=== PATIENT | female | born 1965 | race Caucasian/White ===

== ENCOUNTER 2019-04-18 10:05 | Outpatient (CLI) | payer BC, SELFPAY ==
--- NOTE | 2019-04-18 10:13 | MM_ITS ---
WS: [id number] BILATERAL SCREENING DIGITAL MAMMOGRAM WITH CAD HISTORY: SCREENING COMPARISON: 02/21/2018, 12/18/2017 and 06/20/2013 Bilateral CC and MLO views submitted. Computer aided detection analyzed. Breast composition: The breasts are heterogeneously dense, which may obscure small masses. No suspici ous masses, microcalcifications or architectural distortion. Numerous scattered calcifications throug hout the LEFT breast are stable. No suspicious cluster. Benign appearing lymph nodes. MM/[id number] IMPRESSION: BI-RADS: 2-Benign FOLLOW UP: 1 Year Follow-up
== END 2019-04-18 10:06 | disposition home or self-care (01) ==
LOC: RADSHAW 10:09
PROVIDERS: Family Provider Family Medicine; PCP Family Medicine; Visit Provider Family Medicine
DX: Z12.31 Encounter for screening mammogram for malignant neoplasm of breast (principal)
CPT/HCPCS: 77067

== ENCOUNTER 2019-04-26 14:22 | Emergency (ER) | payer BC, SELFPAY ==
--- NOTE | 2019-04-26 14:25 | XRR_ITS ---
PROCEDURE INFORMATION: Exam: XR Right Hand Exam date and time: 04/26/2019 2:42 PM Age: 53 years old Clinical indication: Injury or trauma; Initial encounter; Hand; Right; Injury date: 3 wks ago; Injury details: Dog bite x 3 weeks, RT thumb oozing, pus, blood, pain TECHNIQUE: Imaging protocol: XR Right hand. Views: 3 or more views. COMPARISON: CR Hand 3 views, RIGHT* [id number] 09/09/2015 2:55 PM FINDINGS: Bones/joints: No fracture or dislocation evident. No bony destruction to indicate obvious osteomyelitis. Thumb interphalangeal joint space narrowing with mild reactive sclerosis suggesting chronic osteoarthritis. Soft tissues: Mild right thumb soft tissue swelling. XR/XR hand RT min 3V* [id number] IMPRESSION: Right thumb soft tissue swelling.
[2019-04-26 14:58] VITALS: BP 160/83; PULSE 82; RESP 18; TEMP 36.8; O2SAT 100; BMI 22.8
--- NOTE | 2019-04-26 15:10 | W.ED.SKABFB ---
HPI - Skin/Abscess/Foreign Bdy General: Chief complaint: Skin/Abscess/Foreign Body Stated complaint: RIGHT THUMB INJURY Time Seen by Provider: 04/26/19 15:11 Source: patient Mode of arrival: ambulatory Limitations: no limitations History of Present Illness: HPI narrative: Patient has had a dog bite to her right thumb approximately 2 weeks ago. Patient was on 7 days of Bactrim with some improvement in the wound and then another 7 days of clindamycin which not much improvement. Patient reports that she has had continued drainage from 1 of the puncture wounds but continues to have some swelling to it. Patient appears well. Patient appears in no acute distress Review of Systems General: Reports: 10 or more systems reviewed and unremarkable except in HPI and below Skin/Breast: Reports: redness and skin swelling PFSH ED PFSH: Social History Smoking and tobacco status: never smoked Physical Exam Const: COMMON NORMALS: no apparent distress and oriented x3 GENERAL APPEARANCE: cooperative HENMT: COMMON NORMALS: normocephalic, external ears normal, EAC's normal, TM's normal bilaterally and external nose normal HEAD & SCALP: normal to inspection and normocephalic FACE & SINUS: normal facial exam NOSE: external nose normal GENERAL EAR: hearing not grossly impaired EXTERNAL EAR: Yes external ears normal EXTERNAL AUDITORY CANAL: EAC's normal TYMPANIC MEMBRANE: TM's normal bilaterally MOUTH: oral and palatal mucosa normal THROAT: posterior oropharynx normal Eye: COMMON NORMALS: PERRL and EOMs intact bilaterally PUPIL: Yes PERRL Neck/C-Spine: COMMON NORMALS: full ROM and no lymphadenopathy Lymph: LYMPHATIC: no lymphedema noted Chest: COMMONS NORMALS: inspection of chest normal and palpation of chest normal Resp: COMMON NORMALS: normal respiratory effort and clear to auscultation bilaterally AUSCULTATION: clear to auscultation bilaterally Cardio: COMMON NORMALS: regular rate and regular rhythm RATE: regular rate RHYTHM: regular rhythm GI: COMMON NORMALS: normal to inspection, nondistended, normoactive bowel sounds and non-tender : COMMON NORMALS: Yes no CVA tenderness BLADDER/KIDNEY EXAM: Yes no CVA tenderness Back/Pelvis: COMMON NORMALS: no CVA tenderness and thoracic and lumbar spine normal to inspection Extremity: NARRATIVE EXTREMITY EXAM: swelling to distal right thumb, draining puncture wound GENERAL: Yes edema Neuro: COMMON NORMALS: oriented x3, moves all extremities and no focal motor deficits Psych: COMMON NORMALS: mental status grossly normal and cooperative Skin: COMMON NORMALS: no rashes or lesions noted GENERAL SKIN EXAM: no rashes or lesions noted Procedures Abscess I/D Site: hand Side (if applicable): right (thumb) Local Anesthetic: lidocaine 1% Amount of anesthesia used (mL): 5 Amount of fluid expressed (mL): 1 Irrigation: No Complications: bleeding Course Vital Signs: Vital signs: Vital Signs Temperature 98.2 F 04/26/19 14:58 Pulse Rate 75 04/26/19 16:21 Respiratory Rate 16 04/26/19 16:21 Blood Pressure 160/83 04/26/19 14:58 Pulse Oximetry 98 04/26/19 16:21 MDM - Skin/Abscess/Foreign Bdy MDM Narrative: Medical decision making narrative: Patient comes in today with injury to the right thumb. Patient reports 2-week history of poor healing and redness to the thumb. Exam notes prompt capillary refill. Normal range of motion of the thumb. Redness to the distal part of the thumb with swelling. Puncture wound is noted to the area with purulent drainage. Differential diagnosis includes abscess, cellulitis, pyogenic granuloma, furuncle, felon. X-ray noted some soft tissue swelling. Opened up wound with a 2 cm incision. Some moderate bleeding occurred post procedure. Wound was covered with dressing and a slight pressure was applied to the wound. Patient was started on Augmentin for better coverage due to the bite coming from a dog. Patient had had previous treatment with 1 week of Bactrim and 1 week of clindamycin. Patient was started on Augmentin recommended to her change of dressing in the emergency room tomorrow. Recommend follow-up with wound care. Case management referral placed. Patient reports understanding of care plan and need for follow-up. Discharge Plan Discharge Patient Disposition: Home, Self-Care Clinical Impression: Cellulitis Qualifiers: Site of cellulitis: extremity Site of cellulitis of extremity: finger Laterality: right Qualified Code(s): L03.011 - Cellulitis of right finger Abscess of skin or subcutaneous tissue Qualifiers: Site of cutaneous abscess: extremity Site of cutaneous abscess of extremity: hand Laterality: right Qualified Code(s): L02.511 - Cutaneous abscess of right hand Condition: Stable Prescriptions: New Augmentin 875-125 mg tablet 1 tab PO BID Qty: 20 RF: 0 hydrocodone-acetaminophen 5-325 mg tablet 1 tab PO Q6H PRN (Reason: pain (scale score 7-10)) Qty: 7 RF: 0 No Action hydroxychloroquine 200 mg tablet 200 mg PO BID Qty: 60 RF: 2 ergocalciferol (vitamin D2) 1,250 mcg (50,000 unit) capsule 50,000 unit PO .COMPLEX Qty: 4 RF: 5 ibuprofen 200 mg Tablet 400 mg PO BID RF: 0 vitamin B complex Tablet 1 tab PO DAILY RF: 0 Fish Oil 1 cap PO DAILY RF: 0 gabapentin 300 mg capsule 300 mg PO BEDTIME RF: 0 Discharge Orders: Discharge Order (Routine); Ordered 04/26/19 Ordered By: Evaristo Levy Referrals: Edvin Tinsley, [Primary Care Provider] - Discharge Diet: Usual diet Discharge Activity: Increase activity as tolerated Patient Instructions: Animal Bite (ED) Activity Restrictions/Additional Instructions: Encourage fluids and rest Activity as tolerate Keep dressing clean and dry Follow-up with primary care in three days Return to ER for dressing change tomorrow Discharge Date/Time: 04/26/19 16:22 Coding Level of Care Code ED Oral And Maxillofacial Pathologist for Chg Fwd Exam Comprehensive
[2019-04-26 15:12] VITALS: RESP 16
[2019-04-26 15:15] VITALS: RESP 16
[2019-04-26] MEDS: lidocaine 1% INJ 20 mL 10 ML SUBCUT (15:40)
[2019-04-26] MEDS: amoxicillin-clav 875-125 mg Tablet 1 TAB PO (15:40)
[2019-04-26 16:21] VITALS: PULSE 75; RESP 16; O2SAT 98
--- NOTE | 2019-04-29 11:52 | DCPLANNER ---
account manager had order to schedule a follow up appointment for patient with Wound Care. account manager called patient to speak with patient, to confirm that she would like for me to schedule a follow up appointment for patient with Wound Care. Patient stated not at this time.
== END 2019-04-26 16:22 | disposition home or self-care (01) ==
PROVIDERS: Emergency Provider Nurse Practitioner Family; Family Provider Family Medicine; PCP Family Medicine
DX: L02.511 Cutaneous abscess of right hand (principal); L03.011 Cellulitis of right finger
CPT/HCPCS: 26010; 73130; 99281; 99283; J2001

== ENCOUNTER 2019-04-27 13:01 | Emergency (ER) | payer BC, SELFPAY ==
[2019-04-27 13:16] VITALS: BP 180/92; PULSE 60; RESP 16; TEMP 36.8; O2SAT 99; BMI 23.6
--- NOTE | 2019-04-27 13:31 | W.ED.EXTPRO ---
HPI - Extremity Problem General: Chief complaint: Extremity Injury, Upper Stated complaint: pain right thumb Time Seen by Provider: 04/27/19 13:30 History of Present Illness: HPI Narrative: 53-year-old female right thumb pain and swelling. She was previously bitten by a dog yesterday return had incision and drainage of a developing abscess in the lateral aspect of the right thumb today is quite swollen tender she comes in for reevaluation.53-year-old female returns the emergency room with complaint of MD Complaint: extremity pain and extremity swelling Onset (ago): day(s) Pain Consistency: constant Location: right Quality: aching Radiation: none Relieving factors: nothing Exacerbating factors: nothing Associated symptoms: Reports no associated symptoms; Deny chest pain, fever(s) or rash Context: other (Recent dog bite) Review of Systems Const: Denies: fever, chills, body aches, change in appetite, fatigue or malaise ENMT: Denies: throat pain, ear pain, nasal discharge or nasal congestion Card: Denies: chest pain, edema, shortness of breath on exertion or shortness of breath when lying down Resp: Denies: shortness of breath, productive cough or non-productive cough GI: Denies: abdominal pain, nausea, vomiting, vomiting blood, coffee grounds in vomit, diarrhea, constipation, bloating, blood in stool or black tarry stool : Denies: flank pain, difficulty urinating, painful urination, urinary frequency or urinary urgency Skin/Breast: Denies: rash or itching PFSH ED PFSH: Social History Smoking and tobacco status: never smoked Physical Exam Const: COMMON NORMALS: no apparent distress GENERAL APPEARANCE: cooperative and comfortable ORIENTATION/CONSCIOUSNESS: Yes awake, Yes oriented to person, Yes oriented to place and Yes oriented to time Neck/C-Spine: COMMON NORMALS: no JVD Lymph: LYMPHATIC: no lymphadenopathy noted and no lymphedema noted Resp: COMMON NORMALS: normal respiratory effort, no retractions, no use of accessory muscles and clear to auscultation bilaterally AUSCULTATION: clear to auscultation bilaterally Cardio: COMMON NORMALS: no JVD, regular rate, regular rhythm and no murmurs RATE: regular rate RHYTHM: regular rhythm GI: COMMON NORMALS: soft to palpation and no hepatosplenomegaly AUSCULTATION: Yes normoactive bowel sounds PALPATION: Yes soft, No tender, No guarding and Yes no hepatosplenomegaly Extremity: OTHER: Examination of the left there is some maceration along the edge of the incision for patient. With palpation along the swollen areas there is no extruding of any purulent material it is not fluctuant and is just firm mildly indurated lateral collateral ligament of the MP joint of the right thumb appears to be severed there is a significant click and deviation with varus stressing. Minimal discomfort. Neuro: SENSORIUM/ORIENTATION: Yes oriented to person, Yes oriented to place and Yes oriented to time Skin: COMMON NORMALS: no rashes or lesions noted GENERAL SKIN EXAM: no rashes or lesions noted Course ED course: Continue Augmentin previously prescribed. Will place her in a thumb splint and have her follow-up with orthopedics for further evaluation she will need close monitoring of this. Return to ER if runs a fever or has worsening swelling. Vital Signs: Vital signs: Vital Signs Temperature 98.3 F 04/27/19 13:16 Pulse Rate 75 04/27/19 15:10 Respiratory Rate 18 04/27/19 15:10 Blood Pressure 175/96 04/27/19 15:10 Pulse Oximetry 100 04/27/19 15:10 MDM - Extremity (Nontraumatic) Lab Data: Labs: Lab Results 04/27/19 04/27/19 Range/Units 13:54 13:54 WBC 5.6 (4.0-10.0) 10^3/ uL RBC 4.20 (4.1-5.3) 10^6/u L Hgb 11.5 (11.5-15.3) g/dL Hct 36.8 L (37.0-47.0) % MCV 87.6 (81-99) fL MCH 27.4 L (28.0-34.0) pg MCHC 31.3 (30.0-36.0) g/dL RDW 14.6 (12.1-15.1) % Plt Count 434 H (130-400) 10^3/c mm MPV 11.2 H (7.4-10.4) fL Neut % (Auto) 65.1 % Lymph % (Auto) 23.5 % [place] % (Auto) 8.7 % Eos % (Auto) 1.4 % Baso % (Auto) 0.9 % Neut # (Auto) 3.7 (1.8-7.7) 10^3/u L Lymph # (Auto) 1.3 (0.8-4.8) 10^3/u L [place] # (Auto) 0.5 (0.2-0.9) 10^3/u L Eos # (Auto) 0.1 (0.0-0.8) 10^3/u L Baso # (Auto) 0.1 (0.0-0.1) 10^3/u L Nucleated RBC % (a uto) 0 % Nucleated RBCs # 0.0 /100WBC Sodium 137 (136-145) mmol/L Potassium 3.5 (3.5-5.1) mmol/L Chloride 99 (98-107) mmol/L Carbon Dioxide 24 (22-29) mmol/L Anion Gap 17.5 (5-19) BUN 11 (6-20) mg/dL Creatinine 0.7 (0.5-0.9) mg/dL GFR Calculation 87.5 L (90-130) mL/min Glucose 88 (65-115) mg/dL Calcium 9.7 (8.5-10.5) mg/dL Total Bilirubin 0.4 (0.15-1.2) mg/dL AST 22 (0-32) U/L ALT 11 (0-33) U/L Alkaline Phosphata se 89 (35-105) IU/L Total Protein 8.4 (6.6-8.7) g/dL Albumin 4.9 (3.5-5.2) g/dL Globulin 3.5 (1.3-4.6) g/dL Discharge Plan Discharge Patient Disposition: Home, Self-Care Clinical Impression: Cellulitis, Fracture of thumb Condition: Stable Prescriptions: No Action hydroxychloroquine 200 mg tablet 200 mg PO BID Qty: 60 RF: 2 ergocalciferol (vitamin D2) 1,250 mcg (50,000 unit) capsule 50,000 unit PO .COMPLEX Qty: 4 RF: 5 ibuprofen 200 mg Tablet 400 mg PO BID RF: 0 vitamin B complex Tablet 1 tab PO DAILY RF: 0 Fish Oil 1 cap PO DAILY RF: 0 gabapentin 300 mg capsule 300 mg PO BEDTIME RF: 0 amoxicillin-pot clavulanate [Augmentin] 875-125 mg tablet 1 tab PO BID Qty: 20 RF: 0 hydrocodone-acetaminophen 5-325 mg tablet 1 tab PO Q6H PRN (Reason: pain (scale score 7-10)) Qty: 7 RF: 0 NAC 600 mg Capsule 600 mg PO DAILY RF: 0 Referrals: So Wise MD [Physician] - (Fracture R thumb, recent dog bite) Discharge Diet: Usual diet Discharge Activity: Resume usual activity Activity Restrictions/Additional Instructions: Continue antibiotics use thumb splint continuously. Case management will call for referral to Ortho. Discharge Date/Time: 04/27/19 16:44 Coding Level of Care Code ED Food Sanitarian for [place] Fwd Exam Detailed
--- NOTE | 2019-04-27 13:37 | CTR_ITS ---
PROCEDURE INFORMATION: Exam: CT Right Upper Extremity With Contrast, Hand Exam date and time: 04/27/2019 2:50 PM Age: 53 years old Clinical indication: Injury or trauma; Initial encounter; Puncture; Hand and finger; Right; Patient HX: R thumb infection 3 weeks S/P dog bite; Additional info: Infection thumb TECHNIQUE: Imaging protocol: CT of the Right upper extremity with intravenous contrast was performed. Exam focused on the hand. Total DLP: 263.5 mGy-cm Radiation optimization: All CT scans at this facility use at least one of these dose optimization techniques: automated exposure control; mA and/or kV adjustment per patient size (includes targeted exams where dose is matched to clinical indication); or iterative reconstruction. Contrast material: OMNI 300; Contrast volume: 95 ml; Contrast route: 18G; COMPARISON: CR XR hand RT min 3V* [id number] 04/26/2019 2:33 PM FINDINGS: Bones/joints: Comminuted displaced intra-articular fracture involving the anterior base of the thumb distal phalanx with the largest fracture fragment measuring 3 mm in maximum diameter. Probable nondisplaced fracture or cortical defect in the distal portion of the thumb proximal phalanx. The patient may be at risk for osteomyelitis because of multiple bony injuries with possible penetrating trauma. Soft tissues: Soft tissue swelling surrounding the thumb consistent with cellulitis. CT/CT hand RT w con [id number] IMPRESSION: 1. Comminuted displaced intra-articular fracture involving the anterior base of the thumb distal phalanx with the largest fracture fragment measuring 3 mm in maximum diameter. 2. Soft tissue swelling surrounding the thumb consistent with cellulitis. 3. The patient may be at risk for osteomyelitis and septic arthritis because of multiple bony injuries with possible penetrating trauma. Radiation Dose CTDIVOL = (mGy): DLP = 263.5 (mGy-cm)
[2019-04-27] MEDS: vancomycin 1,000 MG in sodium chloride 0.9% 250 ML 250 MG IV (13:49)
[2019-04-27 13:52] VITALS: BP 179/105; PULSE 61; RESP 18; O2SAT 99
[2019-04-27 14:16] LABS: Basophils # 0.1 10^3/uL (0.0-0.1); Basophils % 0.9 %; Eosinophils # 0.1 10^3/uL (0.0-0.8); Eosinophils % 1.4 %; Hematocrit 36.8 % (37.0-47.0); Hemoglobin 11.5 g/dL (11.5-15.3); Lymphocytes # 1.3 10^3/uL (0.8-4.8); Lymphocytes % 23.5 %; Mean Corpuscular HGB Conc 31.3 g/dL (30.0-36.0); Mean Corpuscular Hemoglobin 27.4 pg (28.0-34.0); Mean Corpuscular Volume 87.6 fL (81-99); Mean Platelet Volume 11.2 fL (7.4-10.4); Monocytes # 0.5 10^3/uL (0.2-0.9); Monocytes % 8.7 %; Neutrophils # 3.7 10^3/uL (1.8-7.7); Neutrophils % 65.1 %; Nucleated Red Blood Cells % 0 %; Platelet Count 434 10^3/cmm (130-400); Red Cell Distribution Width 14.6 % (12.1-15.1); White Blood Count 5.6 10^3/uL (4.0-10.0)
[2019-04-27 14:22] VITALS: BP 162/81; PULSE 68; RESP 18; O2SAT 100
[2019-04-27 14:53] LABS: Alanine Aminotransferase 11 U/L (0-33); Albumin Level 4.9 g/dL (3.5-5.2); Alkaline Phosphatase 89 IU/L (35-105); Aspartate Amino Transferase 22 U/L (0-32); Blood Urea Nitrogen 11 mg/dL (6-20); Calcium 9.7 mg/dL (8.5-10.5); Carbon Dioxide 24 mmol/L (22-29); Globulin 3.5 g/dL (1.3-4.6); Glomerular Filtration Rate 87.5 mL/min (90-130); Glucose 88 mg/dL (65-115); Total Bilirubin 0.4 mg/dL (0.15-1.2); Total Protein 8.4 g/dL (6.6-8.7)
--- NOTE | 2019-04-27 14:56 | PC.NURSE ---
Pt to CT
[2019-04-27] MEDS: iohexol 300 mg/mL 100 mL Btl IV (15:05)
[2019-04-27 15:07] VITALS: BP 182/110; PULSE 81; RESP 18; O2SAT 100
[2019-04-27 15:10] VITALS: BP 175/96; PULSE 75; RESP 18; O2SAT 100
[2019-04-27 15:26] LABS: Anion Gap 17.5 (5-19); Chloride 99 mmol/L (98-107); Potassium 3.5 mmol/L (3.5-5.1); Sodium 137 mmol/L (136-145)
--- NOTE | 2019-04-29 13:06 | DCPLANNER ---
education and training manager had message to schedule a follow up appointment for patient with ortho. education and training manager called ortho, spoke with Christy, gave clinic patients appointment information. education and training manager was told that patients appointment information would be printed and reviewed. Clinic will kerry upper caser and patient with appointment information.
--- NOTE | 2019-04-30 13:16 | DCPLANNER ---
Patient has a follow up appointment scheduled for Wednesday, May 01, 2019 at 9:[address] Limon. Clinic will call case preparer and liner with appointment information.
--- NOTE | 2019-05-09 10:01 | DCPLANNER ---
Patient did attend appointment scheduled for 05.01.19 with ortho.
== END 2019-04-27 16:44 | disposition home or self-care (01) ==
PROVIDERS: Emergency Provider Family Medicine; Family Provider Family Medicine; PCP Family Medicine
DX: S62.521A Displaced fracture of distal phalanx of right thumb, initial encounter for closed fracture (principal); L03.011 Cellulitis of right finger; W54.0XXA Bitten by dog, initial encounter
CPT/HCPCS: 36415; 73201; 80053; 85025; 87040; 96365; 99283; J3370; J7050; Q9967

== ENCOUNTER → 2019-05-01 08:45 | Outpatient (BNVA) | payer BC, SELFPAY | PROVIDERS: Family Provider Family Medicine; PCP Family Medicine; Referring Provider Emergency Medicine; Visit Provider Orthopaedic Surgery | DX: S62.511A Displaced fracture of proximal phalanx of right thumb, initial encounter for closed fracture (principal); X58.XXXA Exposure to other specified factors, initial encounter | CPT/HCPCS: 73140 ==

== ENCOUNTER 2019-05-03 11:12 | Outpatient (CLI) | payer BC, SELFPAY ==
[2019-05-03 11:36] LABS: Basophils % 1.2 %; Eosinophils # 0.1 10^3/uL (0.0-0.8); Eosinophils % 2.9 %; Hematocrit 36.5 % (37.0-47.0); Hemoglobin 11.3 g/dL (11.5-15.3); Lymphocytes # 1.1 10^3/uL (0.8-4.8); Lymphocytes % 31.1 %; Mean Corpuscular Hemoglobin 27.3 pg (28.0-34.0); Mean Corpuscular Volume 88.2 fL (81-99); Mean Platelet Volume 10.9 fL (7.4-10.4); Monocytes # 0.5 10^3/uL (0.2-0.9); Monocytes % 13.8 %; Neutrophils # 1.7 10^3/uL (1.8-7.7); Neutrophils % 50.7 %; Nucleated Red Blood Cells % 0 %; Platelet Count 368 10^3/cmm (130-400); Red Blood Count 4.14 10^6/uL (4.1-5.3); Red Cell Distribution Width 14.6 % (12.1-15.1); White Blood Count 3.4 10^3/uL (4.0-10.0)
[2019-05-03 11:59] LABS: C Reactive Protein 0.5 mg/L (0.0-4.9)
[2019-05-03 12:42] LABS: Erythrocyte Sedimentation Rate 15 mm/hr (0-15)
== END 2019-05-03 11:13 | disposition home or self-care (01) ==
LOC: LAB 11:19
PROVIDERS: Family Provider Family Medicine; PCP Family Medicine; Visit Provider Orthopaedic Surgery
DX: S62.509A Fracture of unspecified phalanx of unspecified thumb, initial encounter for closed fracture (principal); X58.XXXA Exposure to other specified factors, initial encounter
CPT/HCPCS: 85025; 85651; 86140

== ENCOUNTER → 2019-05-31 10:01 | Outpatient (BNVA) | payer BC, SELFPAY | PROVIDERS: Family Provider Family Medicine; PCP Family Medicine; Visit Provider Orthopaedic Surgery | DX: M79.641 Pain in right hand (principal); S62.521A Displaced fracture of distal phalanx of right thumb, initial encounter for closed fracture; S62.511A Displaced fracture of proximal phalanx of right thumb, initial encounter for closed fracture; X58.XXXA Exposure to other specified factors, initial encounter | CPT/HCPCS: 73140 ==

== ENCOUNTER 2019-06-28 09:31 | Outpatient (CLI) | payer BC, SELFPAY ==
--- NOTE | 2019-06-28 | USCV_ITS ---
Una Lyon Age: 53 Gender: F : 1965 Exam Date: 06/28/2019 10:26 Ordering Phys: Mary Jane Sierra MD ([email or web address]) Technologist: Exam Location: [facility] – [place], [place] Indication: PULMONARY HYPERTENSION BP: 150 / 80 HR: 57 Rhythm: Sinus Technical Quality: Good MEASUREMENTS (Male / Female) Normal Values 2D ECHO LV Diastolic Diameter PLAX 4.4 cm 4.2 - 5.9 / 3.9 - 5.3 cm LV Systolic Diameter PLAX 2.1 cm IVS Diastolic Thickness 0.9 cm 0.6 - 1.0 / 0.6 - 0.9 cm IVS Systolic Thickness 1.5 cm LVPW Diastolic Thickness 1.1 cm 0.6 - 1.0 / 0.6 - 0.9 cm LVPW Systolic Thickness 1.2 cm LVOT Diameter 2.1 cm LV Ejection Fraction 2D Teich 83.7 % LV Ejection Fraction MOD 2C 64.2 % LV Ejection Fraction 2C AL 64.2 % LA Diameter 3.4 cm LA Width 3.2 cm LA Height 3.8 cm RA Width 3.4 cm RA Height 3.7 cm M-MODE LV Diastolic Diameter MM 5.3 cm 4.2 - 5.9 / 3.9 - 5.3 cm LV Systolic Diameter MM 3.5 cm LV Ejection Fraction MM Teich 62.6 % IVS Diastolic Thickness MM 1.1 cm 0.6 - 1.0 / 0.6 - 0.9 cm IVS Systolic Thickness MM 1.5 cm LVPW Diastolic Thickness MM 1.1 cm 0.6 - 1.0 / 0.6 - 0.9 cm LVPW Systolic Thickness MM 1.6 cm RV Diastolic Diameter MM 1.6 cm Aortic Annulus Diameter 3.4 cm LA Ao Ratio MM 1.0 MV E Point Septal Separation 1.0 cm DOPPLER AV Peak Velocity 124.0 cm/s LVOT Peak Velocity 103.0 cm/s AV Area Cont Eq vti 2.6 cm squared AV Area Cont Eq pk 2.8 cm squared MV Area PHT 4.0 cm squared Mitral E to A Ratio 0.9 MV E' Velocity 15.0 cm/s Mitral E to MV E' Ratio 5.7 Mitral E to LV E' Lateral Ratio 5.5 Mitral E to LV E' Septal Ratio 6.0 TR Peak Velocity 256.0 cm/s TR Peak Gradient 26.3 mmHg TV Peak E Velocity 77.0 cm/s Right Atrial Pressure 3.0 mmHg Pulmonary Artery Systolic Pressu 29.2 mmHg FINDINGS Left Ventricle Normal left ventricular size, systolic function and wall thickness, with no regional wall motion abnormalities. Left ventricular ejection fraction is estimated at 67 %. Normal diastolic function. Right Ventricle Normal right ventricular size and systolic function, RVSP 29.2 mmHg. Right Atrium Normal right atrial size. Left Atrium Normal left atrial size. Mitral Valve Mildly thickened mitral valve. No mitral valve stenosis. Trace to mild mitral valve regurgitation. Aortic Valve Aortic valve not well visualized. No aortic valve stenosis. No aortic valve regurgitation. Tricuspid Valve Structurally normal tricuspid valve. Trace-mild tricuspid valve regurgitation. Pulmonic Valve Structurally normal pulmonic valve. No pulmonary valve stenosis. No significant pulmonary valve regurgitation. Pericardium No pericardial effusion. Aorta Normal-sized aortic root. CONCLUSIONS 1. Normal left ventricular size, systolic function and wall thickness, with no regional wall motion abnormalities. Left ventricular ejection fraction is estimated at 67 %. Normal diastolic function. 2. Normal right ventricular size and systolic function, RVSP 29.2 mmHg. 3. Trace to mild mitral and tricuspid valve regurgitation. 4. Pulmonary artery pressure estimated at 29 mmHg. 5. When compared to previous echocardiogram dated 04/24/2017, there may not have been any significant change. Mary Jane Sierra MD (Electronically Signed) Final Date: 01 Jul 2019 12:00 S
[2019-06-28 10:46] LABS: Basophils % 0.6 %; Eosinophils # 0.1 10^3/uL (0.0-0.8); Eosinophils % 1.9 %; Hematocrit 38.6 % (37.0-47.0); Hemoglobin 12.2 g/dL (11.5-15.3); Lymphocytes # 0.9 10^3/uL (0.8-4.8); Lymphocytes % 19.2 %; Mean Corpuscular HGB Conc 31.6 g/dL (30.0-36.0); Mean Corpuscular Hemoglobin 27.2 pg (28.0-34.0); Mean Corpuscular Volume 86.2 fL (81-99); Mean Platelet Volume 11.2 fL (7.4-10.4); Monocytes # 0.6 10^3/uL (0.2-0.9); Monocytes % 11.9 %; Neutrophils # 3.2 10^3/uL (1.8-7.7); Neutrophils % 66.2 %; Nucleated Red Blood Cells % 0 %; Platelet Count 432 10^3/cmm (130-400); Red Blood Count 4.48 10^6/uL (4.1-5.3); Red Cell Distribution Width 15.4 % (12.1-15.1); White Blood Count 4.8 10^3/uL (4.0-10.0)
[2019-06-28 11:04] LABS: Alanine Aminotransferase 17 U/L (0-33); Albumin Level 4.9 g/dL (3.5-5.2); Alkaline Phosphatase 73 IU/L (35-105); Aspartate Amino Transferase 25 U/L (0-32); Globulin 3.4 g/dL (1.3-4.6); Glomerular Filtration Rate 104.6 mL/min (90-130); Total Bilirubin 0.4 mg/dL (0.15-1.2); Total Protein 8.3 g/dL (6.6-8.7)
[2019-06-28 12:04] LABS: Erythrocyte Sedimentation Rate 14 mm/hr (0-15)
[2019-06-28 12:16] LABS: C Reactive Protein 0.5 mg/L (0.0-4.9)
[2019-06-28 13:02] LABS: 25 Hydroxy Vitamin D 45 ng/mL (30-100)
== END 2019-06-28 09:32 | disposition home or self-care (01) ==
PROVIDERS: Internal Medicine Rheumatology; Family Provider Family Medicine; PCP Family Medicine; Visit Provider Internal Medicine Cardiovascular Disease
DX: I27.20 Pulmonary hypertension, unspecified (principal); Z79.899 Other long term (current) drug therapy; I08.1 Rheumatic disorders of both mitral and tricuspid valves
CPT/HCPCS: 36415; 80076; 82306; 82565; 85025; 85651; 86140; 93306

== ENCOUNTER → 2019-09-04 08:38 | Outpatient (BNVA) | payer BC, SELFPAY | PROVIDERS: Family Provider Family Medicine; PCP Family Medicine; Visit Provider Internal Medicine Rheumatology | DX: M35.00 Sjogren syndrome, unspecified (principal); Z79.899 Other long term (current) drug therapy; M05.79 Rheumatoid arthritis with rheumatoid factor of multiple sites without organ or systems involvement; M19.042 Primary osteoarthritis, left hand | CPT/HCPCS: 99214 ==

== ENCOUNTER → 2019-10-07 09:31 | Outpatient (BNVA) | payer BC, SELFPAY | PROVIDERS: Family Provider Family Medicine; PCP Family Medicine; Visit Provider Internal Medicine Rheumatology | DX: Z79.899 Other long term (current) drug therapy (principal) | CPT/HCPCS: 36415; 80076; 82565; 85025; 85651; 86140 ==

== ENCOUNTER → 2019-12-09 08:42 | Outpatient (BNVA) | payer BC, SELFPAY | PROVIDERS: Family Provider Family Medicine; PCP Family Medicine; Visit Provider Internal Medicine Rheumatology | DX: Z79.899 Other long term (current) drug therapy (principal) | CPT/HCPCS: 36415; 80076; 82565; 85025; 85651; 86140 ==

== ENCOUNTER → 2020-01-07 09:29 | Outpatient (BNVA) | payer BC, SELFPAY | PROVIDERS: Family Provider Family Medicine; PCP Family Medicine; Visit Provider Internal Medicine Rheumatology | DX: M35.00 Sjogren syndrome, unspecified (principal); M05.79 Rheumatoid arthritis with rheumatoid factor of multiple sites without organ or systems involvement; R76.8 Other specified abnormal immunological findings in serum; R53.83 Other fatigue; M18.12 Unilateral primary osteoarthritis of first carpometacarpal joint, left hand; Z79.899 Other long term (current) drug therapy | CPT/HCPCS: 36415; 84439; 84443; 99214 ==

== ENCOUNTER → 2020-02-12 13:39 | Outpatient (BNVA) | payer BC, SELFPAY | PROVIDERS: Family Provider Family Medicine; PCP Family Medicine; Visit Provider Internal Medicine Rheumatology | DX: Z79.899 Other long term (current) drug therapy (principal); M35.00 Sjogren syndrome, unspecified; M05.79 Rheumatoid arthritis with rheumatoid factor of multiple sites without organ or systems involvement; M19.90 Unspecified osteoarthritis, unspecified site | CPT/HCPCS: 36415; 80076; 82565; 85025; 85651; 86140 ==

== ENCOUNTER → 2020-05-06 08:48 | Outpatient (BNVA) | payer BC, SELFPAY | PROVIDERS: Family Provider Family Medicine; PCP Family Medicine; Visit Provider Internal Medicine Rheumatology | DX: M05.79 Rheumatoid arthritis with rheumatoid factor of multiple sites without organ or systems involvement (principal); Z79.899 Other long term (current) drug therapy | CPT/HCPCS: 36415; 80076; 82565; 85025; 86140 ==

== ENCOUNTER → 2020-05-13 08:43 | Outpatient (BNVA) | payer BC, SELFPAY | PROVIDERS: Family Provider Family Medicine; PCP Family Medicine; Visit Provider Internal Medicine Rheumatology | DX: M35.00 Sjogren syndrome, unspecified (principal); R76.8 Other specified abnormal immunological findings in serum; M05.79 Rheumatoid arthritis with rheumatoid factor of multiple sites without organ or systems involvement; Z79.899 Other long term (current) drug therapy; R53.83 Other fatigue | CPT/HCPCS: 99214 ==

== ENCOUNTER 2020-07-10 10:07 | Outpatient (CLI) | payer BC, SELFPAY ==
--- NOTE | 2020-07-10 10:11 | MM_ITS ---
WS: [id number] BILATERAL SCREENING DIGITAL MAMMOGRAM WITH CAD HISTORY: SCREENING COMPARISON: 04/18/2019 and 02/21/2018 and 06/20/2013 Bilateral CC and MLO views submitted. Computer aided detection analyzed. Breast composition: The breasts are heterogeneously dense, which may obscure small masses. No suspici ous masses, microcalcifications or architectural distortion. Numerous calcifications within each gaur[address] st have been stable since 2013. MM/[place] [id number] IMPRESSION: BI-RADS: 2-Benign FOLLOW UP: 1 Year Follow-up
== END 2020-07-10 10:08 | disposition home or self-care (01) ==
LOC: RADSHAW 10:10
PROVIDERS: Family Provider Family Medicine; PCP Family Medicine; Visit Provider Family Medicine
DX: Z12.31 Encounter for screening mammogram for malignant neoplasm of breast (principal)
CPT/HCPCS: 77067

== ENCOUNTER → 2020-07-29 11:00 | Outpatient (BNVA) | payer BC, SELFPAY | PROVIDERS: Family Provider Family Medicine; PCP Family Medicine; Visit Provider Obstetrics & Gynecology | DX: N95.0 Postmenopausal bleeding (principal) | CPT/HCPCS: 88175 ==

== ENCOUNTER → 2020-08-05 08:08 | Outpatient (BNVA) | payer BC, SELFPAY | PROVIDERS: Family Provider Family Medicine; PCP Family Medicine; Visit Provider Obstetrics & Gynecology | DX: N95.0 Postmenopausal bleeding (principal); D25.9 Leiomyoma of uterus, unspecified | CPT/HCPCS: 76830 ==

== ENCOUNTER → 2020-09-07 09:01 | Outpatient (BNVA) | payer BC, SELFPAY | PROVIDERS: Family Provider Family Medicine; PCP Family Medicine; Visit Provider Internal Medicine Rheumatology | DX: M05.79 Rheumatoid arthritis with rheumatoid factor of multiple sites without organ or systems involvement (principal); M35.00 Sjogren syndrome, unspecified; Z79.899 Other long term (current) drug therapy; R76.8 Other specified abnormal immunological findings in serum; M19.90 Unspecified osteoarthritis, unspecified site | CPT/HCPCS: 80076; 82565; 85025; 86140 ==

== ENCOUNTER → 2020-09-14 12:50 | Outpatient (BNVA) | payer BC, SELFPAY | PROVIDERS: Family Provider Family Medicine; PCP Family Medicine; Visit Provider Internal Medicine Rheumatology | DX: M05.79 Rheumatoid arthritis with rheumatoid factor of multiple sites without organ or systems involvement (principal); M35.00 Sjogren syndrome, unspecified; Z79.899 Other long term (current) drug therapy; Z71.89 Other specified counseling | CPT/HCPCS: 99214 ==

== ENCOUNTER → 2020-11-12 08:11 | Outpatient (BNVA) | payer BC, SELFPAY | PROVIDERS: Family Provider Family Medicine; PCP Family Medicine; Visit Provider Obstetrics & Gynecology | DX: D25.1 Intramural leiomyoma of uterus (principal) | CPT/HCPCS: 76830 ==

== ENCOUNTER → 2020-12-16 09:28 | Outpatient (BNVA) | payer BC, SELFPAY | PROVIDERS: Family Provider Family Medicine; PCP Family Medicine; Visit Provider Internal Medicine Rheumatology | DX: M05.79 Rheumatoid arthritis with rheumatoid factor of multiple sites without organ or systems involvement (principal); M35.00 Sjogren syndrome, unspecified; Z79.899 Other long term (current) drug therapy | CPT/HCPCS: 80076; 82306; 82565; 85025; 86140 ==

== ENCOUNTER → 2020-12-23 14:17 | Outpatient (BNVA) | payer BC, SELFPAY | PROVIDERS: Family Provider Family Medicine; PCP Family Medicine; Visit Provider Internal Medicine Rheumatology | DX: M35.00 Sjogren syndrome, unspecified (principal); M05.79 Rheumatoid arthritis with rheumatoid factor of multiple sites without organ or systems involvement; M18.9 Osteoarthritis of first carpometacarpal joint, unspecified; M26.69 Other specified disorders of temporomandibular joint; Z79.899 Other long term (current) drug therapy; Z71.89 Other specified counseling; Z87.891 Personal history of nicotine dependence | CPT/HCPCS: 99214 ==

== ENCOUNTER → 2021-03-24 09:28 | Outpatient (BNVA) | payer BC, SELFPAY | PROVIDERS: Family Provider Family Medicine; PCP Family Medicine; Visit Provider Internal Medicine Rheumatology | DX: M05.79 Rheumatoid arthritis with rheumatoid factor of multiple sites without organ or systems involvement (principal); M35.00 Sjogren syndrome, unspecified; Z79.899 Other long term (current) drug therapy | CPT/HCPCS: 80076; 82565; 85025; 86140 ==

== ENCOUNTER 2021-03-29 09:54 | Outpatient (CLI) | payer BC, SELFPAY ==
--- NOTE | 2021-03-29 10:08 | XR_ITS ---
WS: [id number] XR foot RT 2V [id number] REASON FOR EXAM: foot injury FINDINGS: Zone 2 fracture of the proximal fifth metatarsal. Small anterior plantar enthesophyte from the calcaneus. No other significant bony or joint abnormality of the right foot. XR/XR foot RT 2V [id number] IMPRESSION: Fifth metatarsal fracture as above.
== END 2021-03-29 09:55 | disposition home or self-care (01) ==
PROVIDERS: PCP Family Medicine; Visit Provider Family Medicine Adult Medicine
DX: S92.351A Displaced fracture of fifth metatarsal bone, right foot, initial encounter for closed fracture; X58.XXXA Exposure to other specified factors, initial encounter
CPT/HCPCS: 73620

== ENCOUNTER → 2021-03-30 09:53 | Outpatient (BNVA) | payer BC, SELFPAY | PROVIDERS: PCP Family Medicine; Referring Provider Family Medicine Adult Medicine; Visit Provider Podiatrist Foot & Ankle Surgery | DX: S99.921A Unspecified injury of right foot, initial encounter (principal); X58.XXXA Exposure to other specified factors, initial encounter | CPT/HCPCS: 73630 ==

== ENCOUNTER 2021-03-30 11:22 | Outpatient (CLI) | payer BC, SELFPAY | END 2021-03-30 11:23 | disposition home or self-care (01) | LOC: SPT 11:22 | PROVIDERS: PCP Family Medicine; Visit Provider Podiatrist Foot & Ankle Surgery | DX: Z46.89 Encounter for fitting and adjustment of other specified devices (principal); S92.351D Displaced fracture of fifth metatarsal bone, right foot, subsequent encounter for fracture with routine healing; X58.XXXD Exposure to other specified factors, subsequent encounter | CPT/HCPCS: 97760; L4361 ==

== ENCOUNTER → 2021-04-05 10:30 | Outpatient (BNVA) | payer BC, SELFPAY | PROVIDERS: PCP Family Medicine; Visit Provider Hospitalist | DX: Z01.818 Encounter for other preprocedural examination (principal); Z20.822 Contact with and (suspected) exposure to COVID-19 | CPT/HCPCS: 87635 ==

== ENCOUNTER 2021-04-09 05:44 | Day surgery (SDC) | payer BC, SELFPAY ==
[2021-04-08 13:17] VITALS: BMI 26.6
[2021-04-09] VITALS (7 sets, daily range): BP systolic 115–149; BP diastolic 62–82; PULSE 59–72; RESP 15–19; TEMP 36.3–36.6; O2SAT 97–100
--- NOTE | 2021-04-09 | SCC_ITS ---
Procedure done: Open reduction internal fixation right fifth metatarsal fracture. CPT code 74256 4 seconds of fluoroscopic guidance, for a cumulative dose of 0.078 mGy, was provided to Dr. Chavarria by the radiology department. C-arm images of the RIGHT foot were saved for the patient's permanent record. [facility]
--- NOTE | 2021-04-09 06:19 | P.OP_ITS ---
Operative Report Date of procedure: April 09, 2021 Pre-op diagnosis: Right fifth metatarsal fracture Post-op diagnosis: Same Post-op findings: Comminuted right fifth metatarsal fracture. Procedure done: Open reduction internal fixation right fifth metatarsal fracture. CPT code 22354 Implants: [place] 28 2.0 hook plate and 2 mm locking and nonlocking screws, 3-0 Vicryl, 4- 0 Vicryl, 4-0 nylon, 10 cc of Exparel postoperatively and 30 cc of 0.5% Marcaine plain preoperatively and a reverse Barriga block Specimens removed/disposition: None Pathology: None Surgeon: Jarrett Chavarria D.P.M. Traffic Engineer: Kathrin Vela Estimated blood loss: Less than 5 28 IV fluids: 0 Urine output: 0 Complications: None Brief History: Patient sustained a Martinez fracture to the right fifth metatarsal, discussed surgical and nonsurgical management of this and after having considered the increased rate of nonunion and delayed union, patient is very active and would like to get back to full activity as speedily as possible. She would like to m ove forward with open reduction internal fixation of the fracture. Risks include but are not limited to pain, bleeding, numbness, infection, hardware failure, hardware irritation, delayed union, malunion, nonunion, damage to adjacent soft tissue structures, bruising, chronic swelling, chronic numbness and paresthesias secondary to nerve damage, altered mechanics, peroneal tendinitis, deep vein thrombosis, pulmonary embolism, heart attack and stroke. Patient is agreeable wishes to proceed. N.p.o. since midnight, Covid negative, informed consent signed and initialed right foot. No guarantees written, expressed or implied. Procedure: Under mild sedation the patient was brought to the operating room and placed on the operating table in supine position. A timeout was performed. Anesthesia was then administered by the anesthesia service. Local anesthesia was injected by myself consisting of 30 cc of 0.5% Marcaine plain and a reverse Barriga block fashion to the right foot. Well-padded pneumatic tourniquet applied to the right ankle. The right lower extremity was then scrubbed, prepped and draped utilizing normal aseptic technique. Right foot was exanguinated with an Esmarch bandage and a tourniquet inflated to 250 mmHg. Linear incision was performed with #15 blade directly over the base of the fifth metatarsal through skin with dissection carried down through skin pigmentation tissue utilizing accommodation of blunt and sharp technique. Care was taken to retract and preserve neurovascular and tendinous structures. All bleeders were ligated and cauterized as necessary. Periosteal incision was made and 2 fracture lines were appreciated at the level of the fourth metatarsal base or adjacent to the fourth metatarsal base consistent with Martinez fracture, these were curettaged of hematoma and flushed with saline solution followed by fixation utilizing standard AO technique with a [place] 28 hook plate utilizing 2 mm screws both locking and nonlocking with excellent bony apposition and compression noted and positioning of the screws in all 3 planes noted to be excellent utilizing intraoperative fluoroscopy. Incision was then flushed with saline solution and closed in a layered fashion with 3-0 Vicryl deep tissue and retinaculum. 4-0 Vicryl subcutaneous tissue and 4-0 nylon at skin. Exparel expanded with saline injected in a grid like fashion per contact lens technician recommendation total of 10 cc of Exparel and 10 cc of saline at the incision site. Incision was then dressed with Adaptic, sterile 4 x 4, Kerlix and Deshawn wrap. Cam boot was reapplied and the tourniquet was deflated. A prompt hyperemic response was noted to the distal digits of the right foot. Patient tolerated the procedure and anesthesia well and was transferred to the PACU with vital signs stable and vascular status intact. Following a period of postoperative monitoring she will be discharged home, is to remain nonweightbearing on the right foot may heel touch only for transfers with a cam boot. Was provided pain medication be taken judiciously, has at home care instructions and my cell phone number to contact with any postoperative questions or concerns. Recommended 81 mg aspirin once daily starting morning after surgery to potentially reduce the risk of deep vein thrombosis.
--- NOTE | 2021-04-09 06:19 | W.PM.OPSUD ---
Surgery/Procedure H&P Update DATE OF PROCEDURE: April 09, 2021 DATE H&P PERFORMED: 03/30/21 CHANGES TO PREVIOUS DOCUMENTATION: none PLANNED PROCEDURE: Operation Date: 04/09/21 07:00 Proposed Procedures p ORIF Metatarsal Right 5th metatarsal fx(Right) - Jarrett Chavarria DPM
[2021-04-09] MEDS: sodium chloride 0.9% 1,000 ML 30 ML IV (06:20)
--- NOTE | 2021-04-09 06:33 | XR_ITS ---
WS: [id number] FOOT RIGHT TECHNIQUE: 3 views of the right foot CLINICAL INFORMATION: s/p orif 5th met COMPARISON: March 30, 2021 FINDINGS: Postoperative changes plate and screw fixation across the base of the 5th metatarsal fracture fixatio n. Hardware appears in good position. Plantar calcaneal spurring. XR/XR foot RT min 3V* [id number] IMPRESSION: Satisfactory postoperative changes plate and screw fixation 5th metatarsal base
--- NOTE | 2021-04-09 06:59 | P.ANESASSM_ITS ---
Pre-Anesthetic Assessment Height/Weight: Height 1.75 m Weight 81.647 kg Temp Pulse Resp BP Pulse Ox 97.3 F L 72 16 149/82 98 04/09/21 06:10 04/09/21 06:10 04/09/21 06:10 04/09/21 06:10 04/09/21 06:10 Operation Date: 04/09/21 07:00 Proposed Procedures p ORIF Metatarsal Right 5th metatarsal fx(Right) - Jarrett Chavarria DPM Familial anesthetic complications: None Was Beta Oleg taken within 24 hours: N/A Was Clonidine taken within 24 hours: N/A Last intake: Intake Last Liquid Date 04/08/21 Last Liquid Time 20:00 Last Solid Date 04/08/21 Last Solid Time 20:00 Social No alcohol and No tobacco Exam alert, oriented x 3, clear to auscultation bilaterally and regular rate & rhythm Airway Submandibular: within normal limits Cervical ROM: within normal limits Mallampati: Class II Dentition: full Musc/skel Rheumatoid Arthritis (Sjorgren's) Steroids Neuropsych Anxiety and Depression Anesthetic Plan ASA status: 3 Anesthesia: General Medications/Allergies Home Medications Medication Instructions Recorded Confirmed Last Taken Type Fish Oil 1 cap PO DAILY 04/26/19 04/09/21 04/02/21 History vitamin B complex 1 tab PO DAILY 04/26/19 04/09/21 04/08/21 History duloxetine 30 mg capsule,delayed 30 mg PO BID 01/07/20 04/09/21 04/08/21 History release folic acid 1 mg tablet 1 mg PO DAILY #90 tab 09/14/20 04/09/21 04/08/21 Rx ropinirole 1 mg tablet 1 mg PO DAILY 09/14/20 04/08/21 Unknown History cholecalciferol (vitamin D3) 25 25 mcg PO BID cap 12/23/20 04/09/21 04/08/21 History mcg (1,000 unit) capsule hydroxychloroquine 200 mg tablet 200 mg PO BID #60 tab 12/23/20 04/09/21 04/08/21 Rx methotrexate sodium 2.5 mg tablet 15 mg PO .weekly #30 tab 12/23/20 04/09/21 04/07/21 Rx prednisone 10 mg tablet See Rx Instructions PO .COMPLEX 12/23/20 04/08/21 Un known Rx PRN #30 tab amlodipine 2.5 mg tablet 7.5 mg PO DAILY #60 tab 01/27/21 04/09/21 04/08/21 Rx tramadol 50 mg tablet 50 mg PO DAILY #30 tab 03/29/21 04/09/21 04/08/21 Rx Cam Boot to the right #1 ea 03/30/21 03/30/21 Unknown Rx Crutches #1 ea 03/30/21 03/30/21 Unknown Rx oxycodone-acetaminophen 10 mg-325 1 tab PO Q6H PRN 7 Days #28 tab 04/09/21 Unknown Rx mg tablet (Percocet) Allergies Allergy/AdvReac Type Severity Reaction Status Date / Time No Known Allergies Allergy Verified 04/08/21 13:14 Current Medications Generic Name Dose Route Start Last Admin Trade Name Freq PRN Reason Stop Dose Admin Sodium Chloride 1,000 mls @ 30 mls/hr 04/09/21 06:00 04/09/21 06:20 Sodium Chloride 0.9% IV 04/10/21 05:59 30 mls/hr .Q24H GRETHCEN Administration PFSH Anesthesia Medical History Anxiety and depression Diagnosed in 2019 and is currently on medication managed by her primary care provider. Does not have a therapist. COVID-19 vaccine administered Hypertension Reports currently undergoing evaluation for elevated blood pressure but is not on any medication-states she has an appointment with cardiology later this year. Injury of foot, right Metatarsalgia, right foot No pertinent past medical history Denies diabetes, asthma, seizures, DVT/PE PCP: Dr. Tinsley Osteoarthritis Seropositive rheumatoid arthritis of multiple sites Surgical History History of eye surgery Age of 24---had multiple surgeries on her right and left eye for some sort of retinal problem. Hx of knee surgery Multiple surgeries Has had 2 or 3 arthroscopic surgeries on each knee as well as open reconstructive surgery for her ACL on both knees. Family History Family/Other Breast cancer niece, diagnosed at age 40 Colon cancer maternal cousin, diagnosed in his 60s Diabetes maternal aunt Mother Heart disease Hypertension Hyperlipidemia Stroke Sister Heart disease Hypertension Hyperlipidemia Father Thyroid condition Denies family history of Ovarian cancer Uterine cancer Social History Smoking and tobacco status: never smoked Alcohol intake: current Alcohol intake frequency: holidays/special occasions only History of recent travel: No Data Anesthesia Cardiac Studies: Echocardiogram Ultrasound 06/28/19
--- NOTE | 2021-04-09 14:15 | ANE.PACU2 ---
Inpatient post-anesthesia follow up: Airway intact: Yes Vital signs: Temperature 97.9 F Pulse Rate 61 Respiratory Rate 15 Blood Pressure 138/62 Pulse Oximetry 97 Oxygen Delivery Me thod Room Air Oxygen Flow Rate 6 Fraction of Inspir ed Oxygen Hydration adequate: Yes Nausea and vomiting: No Pain level: 2 Mental status: Baseline
== END 2021-04-09 09:05 | disposition home or self-care (01) ==
PROVIDERS: PCP Family Medicine; Visit Provider Podiatrist Foot & Ankle Surgery
PROC: (CPT 28485; principal; 2021-04-09 07:00)
DX: S92.531A Displaced fracture of distal phalanx of right lesser toe(s), initial encounter for closed fracture (principal); X58.XXXA Exposure to other specified factors, initial encounter; M06.9 Rheumatoid arthritis, unspecified; F41.9 Anxiety disorder, unspecified; F32.9 Major depressive disorder, single episode, unspecified; I10 Essential (primary) hypertension; M19.90 Unspecified osteoarthritis, unspecified site
CPT/HCPCS: 28485; 73630; 76000; C1713; C9290; J0690; J1100; J2250; J2405; J2704; J3010; J3490; J7030

== ENCOUNTER → 2021-04-26 12:50 | Outpatient (BNVA) | payer BC, SELFPAY | PROVIDERS: PCP Family Medicine; Visit Provider Podiatrist Foot & Ankle Surgery | DX: Z98.890 Other specified postprocedural states (principal) | CPT/HCPCS: 73630 ==

== ENCOUNTER → 2021-05-11 09:44 | Outpatient (BNVA) | payer BC, SELFPAY | PROVIDERS: PCP Family Medicine; Visit Provider Podiatrist Foot & Ankle Surgery | DX: Z47.89 Encounter for other orthopedic aftercare (principal); M79.671 Pain in right foot; S99.199D Other physeal fracture of unspecified metatarsal, subsequent encounter for fracture with routine healing | CPT/HCPCS: 73630 ==

== ENCOUNTER → 2021-06-01 12:27 | Outpatient (BNVA) | payer BC, SELFPAY | PROVIDERS: PCP Family Medicine; Visit Provider Podiatrist Foot & Ankle Surgery | DX: Z98.890 Other specified postprocedural states (principal) | CPT/HCPCS: 73630 ==

== ENCOUNTER → 2021-06-29 15:04 | Outpatient (BNVA) | payer BC, SELFPAY | PROVIDERS: PCP Family Medicine; Visit Provider Podiatrist Foot & Ankle Surgery | DX: Z98.890 Other specified postprocedural states (principal) | CPT/HCPCS: 73630 ==

== ENCOUNTER 2021-07-29 09:19 | Outpatient (CLI) | payer BC, SELFPAY ==
--- NOTE | 2021-07-29 09:32 | MM_ITS ---
WS: [id number] BILATERAL 3D TOMOSYNTHESIS DIGITAL SCREENING MAMMOGRAPHY WITH CAD CLINICAL INFORMATION: Z12.39 - Encounter for other screening for malignant neop... HISTORY: Screening mammogram. No current complaints. COMPARISON: July 10, 2020 TECHNIQUE: Bilateral CC and MLO views. FINDINGS: The breasts are composed of heterogeneous fibroglandular density tissue, which can limit the detectio n of small underlying mass lesions. A few incidental punctate calcifications. Dense breast tissue upp er outer RIGHT breast with ovoid nodularity progressed compared to previous. Recommend RIGHT diagnost ic mammography with spot compression views and ultrasound for further evaluation. LEFT breast is unremarkable and unchanged. MM/[place] [id number] IMPRESSION: BI-RADS: 0-Incomplete: Need additional imaging evaluation FOLLOW UP: Need Additional Imaging Recommend RIGHT breast diagnostic mammography with spot compression views and u ltrasound for further evaluation.
== END 2021-07-29 09:20 | disposition home or self-care (01) ==
LOC: RAD 09:20
PROVIDERS: PCP Family Medicine; Visit Provider Obstetrics & Gynecology
DX: Z12.31 Encounter for screening mammogram for malignant neoplasm of breast (principal)
CPT/HCPCS: 77063; 77067

== ENCOUNTER → 2021-08-09 08:12 | Outpatient (BNVA) | payer BC, SELFPAY | PROVIDERS: PCP Family Medicine; Visit Provider Internal Medicine Rheumatology | DX: M05.79 Rheumatoid arthritis with rheumatoid factor of multiple sites without organ or systems involvement (principal); M35.00 Sjogren syndrome, unspecified; Z79.899 Other long term (current) drug therapy | CPT/HCPCS: 80076; 82565; 85025; 86140 ==

== ENCOUNTER → 2021-08-19 08:59 | Outpatient (BNVA) | payer BC, SELFPAY | PROVIDERS: PCP Family Medicine; Visit Provider Family Medicine | DX: M05.79 Rheumatoid arthritis with rheumatoid factor of multiple sites without organ or systems involvement (principal); M35.00 Sjogren syndrome, unspecified; F41.9 Anxiety disorder, unspecified; F32.9 Major depressive disorder, single episode, unspecified; I10 Essential (primary) hypertension | CPT/HCPCS: 80053; 80061; 82306; 82607; 84443; 85025; 85651 ==

== ENCOUNTER 2021-08-23 13:39 | Outpatient (CLI) | payer BC, SELFPAY ==
--- NOTE | 2021-08-23 13:50 | MM_ITS ---
WS: [id number] RIGHT 3D TOMOSYNTHESIS DIGITAL MAMMOGRAPHY WITH CAD CLINICAL INFORMATION: R92.8 - Other abnormal and inconclusive findings on diagn... COMPARISON: July 29, 2021 TECHNIQUE: 3 views of the right breast were obtained. FINDINGS: Scattered fibroglandular densities of the right breast. Again seen is dense breast tissue upper outer RIGHT breast with slight nodularity. Ultrasound is pending. ULTRASOUND BREAST RIGHT TECHNIQUE: Ultrasound right breast focused area of concern. CLINICAL INFORMATION: R92.8 - Other abnormal and inconclusive findings on diagn... COMPARISON: None. FINDINGS: Ultrasound RIGHT breast 3 to 9:00 position. Tiny incidental cyst at the 2:00 position measuring 3.5 x 4.3 mm. Incidental lymph node at the 9:00 position measuring 5.1 x 5.0 mm 5 cm from the nipple. Unde rlying dense parenchymal tissue. No suspicious cystic or solid lesions. No lesions to target for biop sy. Recommend return to annual screening mammography. MM/[place] [id number] IMPRESSION: BI-RADS: 2-Benign FOLLOW UP: 1 Year Follow-up Recommend return to annual screening mammography.
== END 2021-08-23 13:40 | disposition home or self-care (01) ==
PROVIDERS: PCP Family Medicine; Visit Provider Obstetrics & Gynecology
DX: R92.8 Other abnormal and inconclusive findings on diagnostic imaging of breast (principal); N60.01 Solitary cyst of right breast
CPT/HCPCS: 76642; 77061

== ENCOUNTER 2021-09-23 14:13 | Outpatient (CLI) | payer BC, SELFPAY ==
--- NOTE | 2021-09-23 15:00 | USCV_ITS ---
Una Lyon Age: 55 Gender: F : 1965 Exam Date: 09/23/2021 14:58 Ordering Phys: Mary Jane Sierra MD ([email or web address]) Technologist: Shellie Yancey Exam Location: [facility] – [place] Indication: Pulmonary Hypertension BP: / HR: 70 Rhythm: Sinus Technical Quality: Adequate MEASUREMENTS (Male / Female) Normal Values 2D ECHO LV Diastolic Diameter PLAX 4.7 cm 4.2 - 5.9 / 3.9 - 5.3 cm LV Systolic Diameter PLAX 3.4 cm LV Chamber Size 4.3 cm IVS Diastolic Thickness 0.8 cm 0.6 - 1.0 / 0.6 - 0.9 cm IVS Systolic Thickness 1.0 cm LVPW Diastolic Thickness 0.8 cm 0.6 - 1.0 / 0.6 - 0.9 cm LVPW Systolic Thickness 1.5 cm RV Chamber Size 2.5 cm LVOT Diameter 2.0 cm LV Ejection Fraction 2D Teich 53.9 % LV Ejection Fraction MOD 2C 77.1 % LV Ejection Fraction 2C AL 77.0 % LA Diameter 2.3 cm LA Width 3.0 cm LA Height 3.7 cm RA Width 3.3 cm RA Height 3.9 cm Aorta at Sinotubular Diameter 3.1 cm IVC Diameter 1.5 cm M-MODE Aortic Annulus Diameter 3.6 cm LA Ao Ratio MM 0.7 MV E Point Septal Separation 0.6 cm DOPPLER AV Peak Velocity 135.0 cm/s LVOT Peak Velocity 84.7 cm/s AV Area Cont Eq vti 2.2 cm squared AV Area Cont Eq pk 2.0 cm squared MV Area PHT 3.1 cm squared Mitral E to A Ratio 0.8 MV E' Velocity 46.5 cm/s Mitral E to MV E' Ratio 6.7 Mitral E to LV E' Lateral Ratio 5.7 Mitral E to LV E' Septal Ratio 8.3 TR Peak Velocity 174.5 cm/s TR Peak Gradient 12.2 mmHg TR Mean Velocity 142.1 cm/s TR Mean Gradient 8.5 mmHg TR Velocity Time Integral 56.9 cm TV Peak E Velocity 59.0 cm/s Right Atrial Pressure 3.0 mmHg Pulmonary Artery Systolic Pressu 15.2 mmHg PV Peak Velocity 56.0 cm/s RV Acceleration Time 0.2 s RV Ejection Time 0.4 s RV AcT/ET 0.6 FINDINGS Left Ventricle Normal left ventricular size, systolic function and wall thickness, with no regional wall motion abnormalities. Left ventricular ejection fraction is estimated at 60 %. Normal diastolic function. Right Ventricle Normal right ventricular size and systolic function. Right ventricular systolic pressure 15.2 mmHg. Right Atrium Normal right atrial size. Left Atrium Normal left atrial size. Mitral Valve Mildly thickened mitral valve. No mitral valve stenosis. No mitral valve regurgitation. Aortic Valve Aortic valve not well visualized. No aortic valve stenosis. No aortic valve regurgitation. Tricuspid Valve Structurally normal tricuspid valve. No significant tricuspid valve regurgitation. Pulmonic Valve Pulmonic valve not well visualized. No pulmonary valve stenosis. Trace pulmonary valve regurgitation. Pericardium No pericardial effusion. Aorta Normal-sized aortic root. IVC Normal-sized inferior vena cava. CONCLUSIONS 1. Normal left ventricular size, systolic function and wall thickness, with no regional wall motion abnormalities. Left ventricular ejection fraction is estimated at 60 %. Normal diastolic function. 2. Normal right ventricular size and systolic function. 3. No significant valvular abnormality. 4. Normal pulmonary artery pressure. 5. When compared to previous study dated 06/28/2019, there may not have been any significant change. Mary Jane Sierra MD (Electronically Signed) Final Date: 27 September 2021 10:36 S
== END 2021-09-23 14:14 | disposition home or self-care (01) ==
LOC: RAD 14:14
PROVIDERS: PCP Family Medicine; Visit Provider Internal Medicine Cardiovascular Disease
DX: I27.20 Pulmonary hypertension, unspecified (principal)
CPT/HCPCS: 93306

== ENCOUNTER → 2021-12-08 09:01 | Outpatient (BNVA) | payer BC, SELFPAY | PROVIDERS: PCP Family Medicine; Visit Provider Internal Medicine Rheumatology | DX: M05.79 Rheumatoid arthritis with rheumatoid factor of multiple sites without organ or systems involvement (principal); M35.00 Sjogren syndrome, unspecified; Z23 Encounter for immunization; Z79.899 Other long term (current) drug therapy | CPT/HCPCS: 80076; 82565; 85025; 86140 ==

== ENCOUNTER → 2022-04-12 10:22 | Outpatient (BNVA) | payer BC, SELFPAY | PROVIDERS: PCP Family Medicine; Visit Provider Internal Medicine Rheumatology | DX: M05.79 Rheumatoid arthritis with rheumatoid factor of multiple sites without organ or systems involvement (principal); Z79.899 Other long term (current) drug therapy | CPT/HCPCS: 80076; 82565; 85025; 86140 ==

== ENCOUNTER → 2022-05-16 08:09 | Outpatient (BNVA) | payer BC, SELFPAY | PROVIDERS: PCP Family Medicine; Visit Provider Internal Medicine Rheumatology | DX: M05.79 Rheumatoid arthritis with rheumatoid factor of multiple sites without organ or systems involvement (principal); Z79.899 Other long term (current) drug therapy | CPT/HCPCS: 80076; 82565; 85025; 86140 ==

== ENCOUNTER 2022-08-11 08:54 | Outpatient (CLI) | payer BC, SELFPAY ==
--- NOTE | 2022-08-11 09:14 | MM_ITS ---
WS: [id number] SCREENING DIGITAL TOMOSYNTHESIS MAMMOGRAM WITH CAD HISTORY: Z12.31 - Encounter for screening mammogram for malignant ... COMPARISON: 07/29/2021, 08/23/2021 and 07/10/2020 Bilateral CC and MLO with tomosynthesis views submitted. Synthetic mammography reviewed. Computer aid ed detection analyzed. Breast composition: There are scattered areas of fibroglandular density. No suspicious masses, microc alcifications or architectural distortion. MM/[place] [id number] IMPRESSION: BI-RADS: 1-Negative FOLLOW UP: 1 Year Follow-up
== END 2022-08-11 08:55 | disposition home or self-care (01) ==
PROVIDERS: PCP Family Medicine; Visit Provider Nurse Practitioner Women's Health
DX: Z12.31 Encounter for screening mammogram for malignant neoplasm of breast (principal)
CPT/HCPCS: 77063; 77067

== ENCOUNTER → 2022-09-19 09:53 | Outpatient (BNVA) | payer BC, SELFPAY | PROVIDERS: PCP Family Medicine; Visit Provider Internal Medicine Rheumatology | DX: M05.79 Rheumatoid arthritis with rheumatoid factor of multiple sites without organ or systems involvement (principal); Z79.899 Other long term (current) drug therapy | CPT/HCPCS: 80076; 82565; 85025; 86140 ==

== ENCOUNTER → 2023-02-01 13:26 | Outpatient (BNVA) | payer BC, SELFPAY | PROVIDERS: PCP Family Medicine; Visit Provider Internal Medicine Rheumatology | DX: Z79.899 Other long term (current) drug therapy (principal); M35.00 Sjogren syndrome, unspecified; M05.79 Rheumatoid arthritis with rheumatoid factor of multiple sites without organ or systems involvement | CPT/HCPCS: 80076; 82565; 85025; 85651; 86140 ==

== ENCOUNTER → 2023-07-21 09:53 | Outpatient (BNVA) | payer BC, SELFPAY | PROVIDERS: PCP Family Medicine; Visit Provider Internal Medicine Rheumatology | DX: M35.00 Sjogren syndrome, unspecified (principal); M05.79 Rheumatoid arthritis with rheumatoid factor of multiple sites without organ or systems involvement; Z79.899 Other long term (current) drug therapy | CPT/HCPCS: 80076; 82565; 85025; 85651; 86140 ==

== ENCOUNTER 2023-08-18 09:40 | Outpatient (CLI) | payer BC, SELFPAY ==
--- NOTE | 2023-08-18 09:50 | MM_ITS ---
WS: [id number] BILATERAL 3D TOMOSYNTHESIS DIGITAL SCREENING MAMMOGRAPHY WITH CAD CLINICAL INFORMATION: SCREENING HISTORY: Screening mammogram. No current complaints. COMPARISON: 2022 TECHNIQUE: Bilateral CC and MLO views. FINDINGS: The breasts are composed of heterogeneous fibroglandular density tissue, which can limit the detectio n of small underlying mass lesions. No suspicious mass, asymmetry, calcifications, or architectural d istortion. No evidence of malignancy. A few tiny incidental punctate calcifications similar to previo us. MM/[place] [id number] IMPRESSION: BI-RADS: 2-Benign FOLLOW UP: 1 Year Follow-up Recommend return to annual screening mammography.
== END 2023-08-18 09:41 | disposition home or self-care (01) ==
LOC: RAD 09:41
PROVIDERS: PCP Family Medicine; Visit Provider Family Medicine
DX: Z12.31 Encounter for screening mammogram for malignant neoplasm of breast (principal); R92.323 Mammographic fibroglandular density, bilateral breasts; R92.333 Mammographic heterogeneous density, bilateral breasts; R92.1 Mammographic calcification found on diagnostic imaging of breast
CPT/HCPCS: 77063; 77067

== ENCOUNTER → 2023-12-05 08:31 | Outpatient (BNVA) | payer BC, SELFPAY | PROVIDERS: PCP Family Medicine; Visit Provider Internal Medicine Rheumatology | DX: Z79.899 Other long term (current) drug therapy (principal); M05.79 Rheumatoid arthritis with rheumatoid factor of multiple sites without organ or systems involvement | CPT/HCPCS: 80076; 82565; 85025; 85651; 86140 ==

== ENCOUNTER → 2024-03-13 10:00 | Outpatient (BNVA) | payer BC, SELFPAY | PROVIDERS: PCP Family Medicine; Visit Provider Internal Medicine Rheumatology | DX: Z79.899 Other long term (current) drug therapy (principal) | CPT/HCPCS: 80076; 82565; 85025; 85651; 86140 ==

== ENCOUNTER → 2024-07-04 08:55 | Outpatient (BNVA) | payer BC, SELFPAY | PROVIDERS: PCP Family Medicine; Visit Provider Internal Medicine Rheumatology | DX: Z79.899 Other long term (current) drug therapy (principal); M35.00 Sjogren syndrome, unspecified; M05.79 Rheumatoid arthritis with rheumatoid factor of multiple sites without organ or systems involvement | CPT/HCPCS: 80076; 82565; 85025; 85651; 86140 ==

== ENCOUNTER 2024-08-21 08:07 | Outpatient (CLI) | payer BC, SELFPAY ==
--- NOTE | 2024-08-21 08:11 | MM_ITS ---
WS: [id number] BILATERAL SCREENING DIGITAL TOMOSYNTHESIS MAMMOGRAM WITH CAD HISTORY: SCREENING COMPARISON: 08/18/2023, 08/11/2022 and 07/29/2021 Bilateral CC and MLO views with tomosynthesis and synthetic mammography submitted. Computer aided detection analyzed. Breast composition: There are scattered areas of fibroglandular density. No suspicious masses, microcalcifications or architectural distortion. Asymmetries are stable since 2021. MM/MM scr BI tomosynthesis [id number] IMPRESSION: BI-RADS: 2 - Benign. FOLLOW UP: 1 Year Follow-up
== END 2024-08-21 08:08 | disposition home or self-care (01) ==
PROVIDERS: PCP Family Medicine; Visit Provider Family Medicine
DX: Z12.31 Encounter for screening mammogram for malignant neoplasm of breast (principal); R92.323 Mammographic fibroglandular density, bilateral breasts; N64.89 Other specified disorders of breast
CPT/HCPCS: 77063; 77067

== ENCOUNTER → 2024-09-16 13:53 | Outpatient (BNVA) | payer BC, SELFPAY | PROVIDERS: PCP Family Medicine; Visit Provider Clinical Nurse Specialist Adult Health | DX: R82.90 Unspecified abnormal findings in urine (principal); R50.9 Fever, unspecified | CPT/HCPCS: 81000; 87086 ==

== ENCOUNTER → 2024-09-19 10:34 | Outpatient (BNVA) | payer BC, SELFPAY | PROVIDERS: PCP Family Medicine; Visit Provider Clinical Nurse Specialist Adult Health | DX: R50.9 Fever, unspecified (principal) | CPT/HCPCS: 80053; 85025; 85651; 86140 ==

== ENCOUNTER → 2024-09-24 09:57 | Outpatient (BNVA) | payer BC, SELFPAY | PROVIDERS: PCP Family Medicine; Visit Provider Clinical Nurse Specialist Adult Health | DX: Z91.89 Other specified personal risk factors, not elsewhere classified (principal) | CPT/HCPCS: 80053; 85025; 85651; 86140 ==

== ENCOUNTER 2024-11-05 09:12 | Outpatient (CLI) | payer BC, SELFPAY ==
--- NOTE | 2024-11-05 09:30 | USR_ITS ---
PROCEDURE INFORMATION: Exam: US Duplex Lower Extremity Veins, Bilateral Exam date and time: 11/05/2024 9:46 AM Age: 58 years old Clinical indication: Swelling (edema) of limb; Lower extremity, bilateral; Additional info: Rule out venous insufficiency, please rule out venous insufficiency TECHNIQUE: Imaging protocol: Real-time duplex ultrasound of the bilateral extremities with 2-D villavicencio scale, color Doppler flow and spectral waveform analysis including responses to compression and other maneuvers (when performed) with image documentation. Complete exam focused on the lower extremity veins. COMPARISON: CR XR foot RT min 3V* [id number] 06/29/2021 3:06 PM FINDINGS: Right deep veins: Unremarkable. The common femoral, femoral, proximal profunda femoral and popliteal veins are patent without thrombus. Normal Doppler waveforms. Normal compressibility and/or augmentation response. Left deep veins: Unremarkable. The common femoral, femoral, proximal profunda femoral and popliteal veins are patent without thrombus. Normal Doppler waveforms. Normal compressibility and/or augmentation response. Superficial veins: Greater saphenous veins at the saphenofemoral junctions are patent bilaterally without thrombus. Soft tissues: Unremarkable. Other findings: No significant reflux into the greater or lesser saphenous system on either side. US/CV aldo dup insuff [facility] [id number] IMPRESSION: No evidence of deep vein thrombosis.
== END 2024-11-05 09:13 | disposition home or self-care (01) ==
LOC: RAD 09:13
PROVIDERS: PCP Family Medicine; Visit Provider Nurse Practitioner Family
DX: M79.89 Other specified soft tissue disorders (principal)
CPT/HCPCS: 93970

== ENCOUNTER → 2024-12-09 10:40 | Outpatient (BNVA) | payer BC, SELFPAY | PROVIDERS: PCP Family Medicine; Visit Provider Family Medicine | DX: E03.9 Hypothyroidism, unspecified (principal); Z79.899 Other long term (current) drug therapy; M35.00 Sjogren syndrome, unspecified; M05.79 Rheumatoid arthritis with rheumatoid factor of multiple sites without organ or systems involvement; R20.0 Anesthesia of skin; R30.0 Dysuria; R82.998 Other abnormal findings in urine | CPT/HCPCS: 80061; 81000; 82607; 84443; 85025; 86140; 87086 ==

== ENCOUNTER 2024-12-12 13:18 | Emergency (ER) | payer BC, SELFPAY ==
[2024-12-12 13:23] VITALS: BP 163/97; PULSE 86; RESP 18; TEMP 36.6; O2SAT 99
--- NOTE | 2024-12-12 13:55 | USCV_ITS ---
Una Lyon Age: 59 Gender: F : 1965 Exam Date: 12/12/2024 14:09 Ordering Phys: Angel Mckeon Technologist: BALAJI [place]am [place] [facility] [place]ication: left arm numbness HISTORY: Upper extremity numbness PROCEDURES: Venous duplex imaging was performed in only the left upper extremity. The following venous structures were evaluated: internal jugular vein, subclavian vein, axillary vein, and brachial veins. In addition, the basilic vein, cephalic vein, radial vein, and ulnar vein. FINDINGS: Evidence of acute occlusive superficial thrombophlebitis in the left basilic vein with abnormal flow dynamics. Remaining veins are normal. CONCLUSIONS Acute left basilic vein thrombophlebitis. No DVT. Dr. Vijaya Lilly DO (Electronically Signed) Final Date: 12 December 2024 14:55 S
--- NOTE | 2024-12-12 13:55 | CT_ITS ---
WS: [id number] CT HEAD NONCONTRAST HISTORY: left arm numbness/headache TECHNIQUE: Contiguous axial imaging performed through the brain. Bone and soft tissue windows. Sagittal and coronal reformats reviewed. All CT scans at [facility] use at least one of these dose optimization techniques: automated exposure control; mA and/or kV adjustment per patient size (includes targeted exams where dose is matched to clinical indication); or iterative reconstruction. DLP: 1079.30 mGy.cm COMPARISON: None available. No acute intracranial hemorrhage, midline shift or mass effect. No atrophy or prior infarcts or herniation. Ventricles: Normal size with no hydrocephalus. Paranasal sinuses: As visualized are clear. Mastoid air cells: Well pneumatized. Calvarium and scalp: Skull is intact with no soft tissue edema or swelling. CT/CT head wo con* [id number] IMPRESSION: Negative head CT.
--- NOTE | 2024-12-12 14:07 | W.ED.EXTPRO ---
Documented by User: RAINA Kenny 12/12/24 16:03 HPI - Extremity Problem General: Chief complaint: Extremity Injury, Upper Stated complaint: L arm and hand Numb Time Seen by Provider: 12/12/24 13:32 Source: patient Mode of arrival: ambulatory Limitations: no limitations History of Present Illness: Patient is a 59-year-old female who presents the emergency department complaining of left upper extremity numbness for the past couple of weeks but worsening. Also has reported a headache over that timeframe. States that she is concerned that she is having a stroke. Also states that she saw her primary care a few days ago, told that it might be due to nerve damage. 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 No history of carpal tunnel syndrome. No pain is reported. There is no coolness reported to the extremity, she does note that the numbness has seemed to spread proximally and is now in the forearm. Does retain full range of motion. Does not endorse any specific alleviating or exacerbating factor. She denies any trauma, history of DVT, recent procedure, or history of peripheral vascular disease. MD Complaint: other (Left upper extremity numbness) Onset (ago): week(s) Pain Consistency: intermittent Location: left and upper extremity Radiation: proximal Relieving factors: nothing Exacerbating factors: nothing Associated symptoms: Deny chest pain, fever(s) or rash Related Data Home Medications ?Medication ?Instructions ?Recorded ?Confirmed vitamin B complex 1 tab PO DAILY 04/26/19 10/10/24 cholecalciferol (vitamin D3) 25 25 mcg PO BID 12/23/20 10/10/24 mcg (1,000 unit) capsule diclofenac sodium 1 % topical gel 2 g topical QID PRN 06/28/21 10/10/24 Previous Rx's ?Medication ?Instructions ?Recorded duloxetine 30 mg capsule,delayed See Rx Instructions .Route 01/29/24 release .COMPLEX #180 ea amlodipine 10 mg tablet 10 mg PO DAILY #90 tabs 05/28/24 chlorthalidone 25 mg tablet 25 mg PO DAILY #90 tabs 05/28/24 potassium chloride 8 mEq 8 meq PO DAILY 30 days #30 caps 09/23/24 capsule,extended release doxycycline monohydrate 100 mg 200 mg (2 x 100 mg) PO ONCE #20 09/24/24 tablet tabs cevimeline 30 mg capsule 1 cap PO TID #90 caps 09/25/24 gabapentin 300 mg capsule 300 mg PO .HS #90 caps 09/25/24 hydroxychloroquine 200 mg tablet 200 mg PO BID #180 tabs 09/25/24 leflunomide 10 mg tablet 10 mg PO DAILY #90 tabs 09/25/24 ropinirole 1 mg tablet 1 mg PO DAILY #90 tabs 11/06/24 ciprofloxacin HCl 500 mg tablet 500 mg PO BID UTI #10 tabs 12/09/24 prednisone 20 mg tablet See Rx Instructions PO .COMPLEX 12/09/24 PRN inflammation #15 tabs apixaban 5 mg tablet (Eliquis) 5 mg PO BID #60 tabs 12/12/24 Allergies Allergy/AdvReac Type Severity Reaction Status Date / Time methotrexate AdvReac Intermediate elevated Verified 12/09/24 10:11 LFTs pilocarpine AdvReac Intermediate nausea and Verified 12/09/24 10:11 hotflashes Beta-Blockers AdvReac Unknown Verified 12/09/24 10:11 (Beta-Adrenergic Bloc Review of Systems General: Reports: 10 or more systems reviewed and unremarkable except in HPI and below Const: Denies: fever(s) or chills Card: Denies: chest pain Resp: Denies: dyspnea or productive cough GI: Denies: abdominal pain, nausea, vomiting or diarrhea : Denies: flank pain Musc: Denies: neck pain, back pain, extremity pain, extremity swelling, joint pain, joint swelling, joint redness, joint warmth, limited range of motion or muscle weakness Skin/Breast: Denies: rash Neuro: Reports: headache(s) and numbness in extremities (Left upper extremity); Denies: weakness in extremities, difficulty walking, dizziness, behavioral changes, Slurred speech present, difficulty communicating thoughts or seizure-like activity PFS ED PFSH: Medical History Piriformis syndrome of left side Immunization counseling High risk medication use Fracture dislocation of joint Hypertension Diagnosed in 2020 and is on medication managed by library acquisitions technician Dr. Sierra. Anxiety and depression Diagnosed in 2019 and is currently on medication managed by her primary care provider. Does not have a therapist. No pertinent past medical history Denies diabetes, asthma, seizures, DVT/PE PCP: Dr. Tinsley Seropositive rheumatoid arthritis of multiple sites Surgical History S/P foot surgery 03/2021--Hook and plate surgery to right foot for broken metatarsal. Hx of knee surgery Multiple surgeries Has had 2 or 3 arthroscopic surgeries on each knee as well as open reconstructive surgery for her ACL on both knees. History of eye surgery Age of 24---had multiple surgeries on her right and left eye for some sort of retinal problem. Family History Family/Other Breast cancer niece, diagnosed at age 40 Colon cancer maternal cousin, diagnosed in his 60s Diabetes maternal aunt Mother Heart disease Hypertension Hyperlipidemia Stroke Sister Heart disease Hypertension Hyperlipidemia Father Thyroid disease Denies family history of Ovarian cancer Uterine cancer Social History Smoking and tobacco/nicotine status: former use of tobacco/nicotine Alcohol intake: current Alcohol intake frequency: few times a month Substance/Drug Use: never Physical Exam Const: COMMON NORMALS: no acute distress, patient oriented x3, no limitations, healthy appearing, alert and well nourished OTHER: Nontoxic-appearing HENMT: COMMON NORMALS: normocephalic and atraumatic HEAD & SCALP: normocephalic and atraumatic Neck/C-Spine: COMMON NORMALS: full ROM, supple and no meningeal signs Resp: COMMON NORMALS: normal respiratory effort, No use of accessory muscles and clear to auscultation bilaterally AUSCULTATION: clear to auscultation bilaterally Cardio: COMMON NORMALS: regular rate and regular rhythm RATE: regular rate RHYTHM: regular rhythm Extremity: COMMON NORMALS: normal to inspection, full ROM, capillary refill normal, no joint enlargement and no clubbing, cyanosis or edema Neuro: COMMON NORMALS: patient oriented x3, moves all extremities and no focal motor deficits SENSORIUM/ORIENTATION: Yes alert MENINGEAL SIGNS: Yes no meningeal signs GAIT: Yes Normal gait present MOTOR EXAM: 5/5 motor strength present throughout, Pronator motor function not present, no tremor noted, no asterixis, Motor fasciculations not present and Normal motor muscle tone present throughout OTHER: Endorsing diminished sensation to light touch to the left hand and distal forearm Skin: COMMON NORMALS: no rashes or lesions noted GENERAL SKIN EXAM: no rashes or lesions noted Course Vital Signs: Vital signs: Vital Signs Temperature 97.8 F 12/12/24 13:23 Pulse Rate 86 12/12/24 13:23 Respiratory Rate 18 12/12/24 13:23 Blood Pressure 163/97 12/12/24 13:23 Pulse Oximetry 99 12/12/24 13:23 Oxygen Delivery Me thod Room Air 12/12/24 13:23 MDM - Extremity (Nontraumatic) Medical Decision Making This patient has had left upper extremity numbness that has been worsening for the past couple of weeks, no trauma reported. By ultrasound she is presenting with acute, occlusive superficial thrombophlebitis of the left basilic vein, confirmed on duplex ultrasound and also suggestions of abnormal flow dynamics. Being that she was reporting a headache, CT head was ordered to rule out any large bleed or mass effect and this was negative. Given the proximal location of the basilic vein with occlusive features, and risk of extension into deep venous system (axillary/subclavian), considered high risk superficial vein thrombosis. There are no signs of any active infection, she has no bleeding disorder or history of kidney or liver disease. After weighing risks and benefits, initiation of therapeutic Eliquis is indicated to reduce risk of progression to the DVT or PE. Patient is counseled regarding bleeding risks, signs of DVT/PE, and importance of adherence to therapy. Plan is for her to follow-up with primary care provider to discuss initiation of treatment and further resumption/cessation in the future. She is given return precautions in the meantime of which she verbalizes understanding. Lab Data Radiology Impressions Head CT 12/12/24 13:55 IMPRESSION: Negative head CT. All radiology interpretation(s) finalized by discharge Discharge Plan Discharge Patient Disposition: Home Clinical Impression: Superficial thrombophlebitis of basilic vein Condition: Stable Prescriptions: New Eliquis 5 mg tablet 5 mg PO BID Qty: 60 0RF Rx Instructions: Take 10mg (2 tabs) PO BID for 7 days, then take 5mg (1 tab) PO BID from then on until through with treatment. Follow up with primary care provider for cessation of treatment. No Action diclofenac sodium 1 % gel 2 g topical QID PRN Rx Instructions: apply to affected area as needed cholecalciferol (vitamin D3) 25 mcg (1,000 unit) capsule 25 mcg PO BID doxycycline monohydrate 100 mg tablet 200 mg PO ONCE Qty: 20 0RF Rx Instructions: tick bite treatment prednisone 20 mg tablet See Rx Instructions PO .COMPLEX PRN (Reason: inflammation) Qty: 15 1RF Rx Instructions: 2 po qday x 5 days, the 1 po qday x 5 days orally take 2 tab daily for 7 days as needed for arthritis flare PRN; ciprofloxacin HCl 500 mg tablet 500 mg PO BID Qty: 10 0RF cevimeline 30 mg capsule 1 cap PO TID Qty: 90 5RF hydroxychloroquine 200 mg tablet 200 mg PO BID Qty: 180 1RF leflunomide 10 mg tablet 10 mg PO DAILY Qty: 90 1RF gabapentin 300 mg capsule 300 mg PO .HS Qty: 90 1RF duloxetine 30 mg capsule,delayed release(DR/EC) See Rx Instructions .ROUTE .COMPLEX Qty: 180 3RF Dose Instruction: Take 1 capsule by mouth twice daily Rx Instructions: Take 1 capsule by mouth twice daily chlorthalidone 25 mg tablet 25 mg PO DAILY Qty: 90 3RF amlodipine 10 mg tablet 10 mg PO DAILY Qty: 90 3RF potassium chloride 8 mEq capsule, extended release 8 meq PO DAILY 30 Days Qty: 30 5RF ropinirole 1 mg tablet 1 mg PO DAILY Qty: 90 3RF vitamin B complex Tablet 1 tab PO DAILY Discharge Orders: Discharge ED (Routine); Ordered 12/12/24 Ordered By: Angel Mckeon Referrals: Edvin Tinsley DO [Primary Care Provider, Family Practice] Patient Instructions: Patient Portal & Esther Instructions Activity Restrictions/Additional Instructions: Discharge Instructions: Apixaban Diagnosis: Acute occlusive basilic vein thrombophlebitis (upper extremity DVT). Treatment Plan: You have been prescribed apixaban (Eliquis), a blood thinner, to treat your vein clot. - Take 10 mg twice daily for 7 days, then 5 mg twice daily for 4 to 6 weeks as directed. - Take apixaban at the same times each day, with or without food. - Do not stop taking apixaban unless instructed by your healthcare provider. What to Expect: - Apixaban helps prevent the clot from getting bigger and lowers the risk of new clots forming. - You may bruise or bleed more easily. It may take longer for bleeding to stop. When to Seek Medical Attention: - Call your provider or go to the emergency room if you have: - Unusual bleeding (nosebleeds, bleeding gums, blood in urine or stool, heavy menstrual bleeding) - Severe headache, dizziness, weakness, or fainting - Signs of allergic reaction (rash, swelling, trouble breathing) - Any injury, especially to your head Precautions: - Tell all your healthcare providers and dentist that you are taking apixaban before any procedure or new medication. - Avoid taking aspirin, NSAIDs (like ibuprofen), or other blood thinners unless approved by your provider. - If you are , planning , or , inform your provider. Follow-Up: - Schedule a follow-up visit with your primary care provider in 4 to 6 weeks, or sooner if you have any concerns. - Your provider will check your progress and decide if you need to continue treatment. Other Instructions: - If you miss a dose, take it as soon as you remember. If it is almost time for your next dose, skip the missed dose?do not double up. - Store apixaban at room temperature, away from moisture and heat. Contact Information: - For questions or concerns, contact your healthcare provider. Summary: Taking apixaban as prescribed is important for your recovery and to prevent complications. Watch for signs of bleeding and keep all follow-up appointments. 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 [employer] Documented by User: Lizandro Simmons DO 12/12/24 16:29 HPI - Extremity Problem General: Chief complaint: Extremity Injury, Upper Stated complaint: L arm and hand Numb Time Seen by Provider: 12/12/24 13:32 Related Data Home Medications ?Medication ?Instructions ?Recorded ?Confirmed vitamin B complex 1 tab PO DAILY 04/26/19 10/10/24 cholecalciferol (vitamin D3) 25 25 mcg PO BID 12/23/20 10/10/24 mcg (1,000 unit) capsule diclofenac sodium 1 % topical gel 2 g topical QID PRN 06/28/21 10/10/24 Previous Rx's ?Medication ?Instructions ?Recorded duloxetine 30 mg capsule,delayed See Rx Instructions .Route 01/29/24 release .COMPLEX #180 ea amlodipine 10 mg tablet 10 mg PO DAILY #90 tabs 05/28/24 chlorthalidone 25 mg tablet 25 mg PO DAILY #90 tabs 05/28/24 potassium chloride 8 mEq 8 meq PO DAILY 30 days #30 caps 09/23/24 capsule,extended release doxycycline monohydrate 100 mg 200 mg (2 x 100 mg) PO ONCE #20 09/24/24 tablet tabs cevimeline 30 mg capsule 1 cap PO TID #90 caps 09/25/24 gabapentin 300 mg capsule 300 mg PO .HS #90 caps 09/25/24 hydroxychloroquine 200 mg tablet 200 mg PO BID #180 tabs 09/25/24 leflunomide 10 mg tablet 10 mg PO DAILY #90 tabs 09/25/24 ropinirole 1 mg tablet 1 mg PO DAILY #90 tabs 11/06/24 ciprofloxacin HCl 500 mg tablet 500 mg PO BID UTI #10 tabs 12/09/24 prednisone 20 mg tablet See Rx Instructions PO .COMPLEX 12/09/24 PRN inflammation #15 tabs apixaban 5 mg tablet (Eliquis) 5 mg PO BID #60 tabs 12/12/24 Allergies Allergy/AdvReac Type Severity Reaction Status Date / Time methotrexate AdvReac Intermediate elevated Verified 12/09/24 10:11 LFTs pilocarpine AdvReac Intermediate nausea and Verified 12/09/24 10:11 hotflashes Beta-Blockers AdvReac Unknown Verified 12/09/24 10:11 (Beta-Adrenergic Bloc PFSH ED PFSH: Medical History Piriformis syndrome of left side Immunization counseling High risk medication use Fracture dislocation of joint Hypertension Diagnosed in 2020 and is on medication managed by library acquisitions technician Dr. Sierra. Anxiety and depression Diagnosed in 2019 and is currently on medication managed by her primary care provider. Does not have a therapist. No pertinent past medical history Denies diabetes, asthma, seizures, DVT/PE PCP: Dr. Tinsley Seropositive rheumatoid arthritis of multiple sites Surgical History S/P foot surgery 03/2021--Hook and plate surgery to right foot for broken metatarsal. Hx of knee surgery Multiple surgeries Has had 2 or 3 arthroscopic surgeries on each knee as well as open reconstructive surgery for her ACL on both knees. History of eye surgery Age of 24---had multiple surgeries on her right and left eye for some sort of retinal problem. Family History Family/Other Breast cancer niece, diagnosed at age 40 Colon cancer maternal cousin, diagnosed in his 60s Diabetes maternal aunt Mother Heart disease Hypertension Hyperlipidemia Stroke Sister Heart disease Hypertension Hyperlipidemia Father Thyroid disease Denies family history of Ovarian cancer Uterine cancer Social History Smoking and tobacco/nicotine status: former use of tobacco/nicotine Alcohol intake: current Alcohol intake frequency: few times a month Substance/Drug Use: never Course Vital Signs: Vital signs: Vital Signs Temperature 97.8 F 12/12/24 13:23 Pulse Rate 86 12/12/24 13:23 Respiratory Rate 18 12/12/24 13:23 Blood Pressure 163/97 12/12/24 13:23 Pulse Oximetry 99 12/12/24 13:23 Oxygen Delivery Me thod Room Air 12/12/24 13:23 MDM - Extremity (Nontraumatic) Medical Decision Making This patient has had left upper extremity numbness that has been worsening for the past couple of weeks, no trauma reported. By ultrasound she is presenting with acute, occlusive superficial thrombophlebitis of the left basilic vein, confirmed on duplex ultrasound and also suggestions of abnormal flow dynamics. Being that she was reporting a headache, CT head was ordered to rule out any large bleed or mass effect and this was negative. Given the proximal location of the basilic vein with occlusive features, and risk of extension into deep venous system (axillary/subclavian), considered high risk superficial vein thrombosis. There are no signs of any active infection, she has no bleeding disorder or history of kidney or liver disease. After weighing risks and benefits, initiation of therapeutic Eliquis is indicated to reduce risk of progression to the DVT or PE. Patient is counseled regarding bleeding risks, signs of DVT/PE, and importance of adherence to therapy. Plan is for her to follow-up with primary care provider to discuss initiation of treatment and further resumption/cessation in the future. She is given return precautions in the meantime of which she verbalizes understanding. Chart reviewed Lab Data Radiology Impressions Head CT 12/12/24 13:55 IMPRESSION: Negative head CT. Discharge Plan Discharge Patient Disposition: Home Clinical Impression: Superficial thrombophlebitis of basilic vein Condition: Stable Prescriptions: New Eliquis 5 mg tablet 5 mg PO BID Qty: 60 0RF Rx Instructions: Take 10mg (2 tabs) PO BID for 7 days, then take 5mg (1 tab) PO BID from then on until through with treatment. Follow up with primary care provider for cessation of treatment. No Action diclofenac sodium 1 % gel 2 g topical QID PRN Rx Instructions: apply to affected area as needed cholecalciferol (vitamin D3) 25 mcg (1,000 unit) capsule 25 mcg PO BID doxycycline monohydrate 100 mg tablet 200 mg PO ONCE Qty: 20 0RF Rx Instructions: tick bite treatment prednisone 20 mg tablet See Rx Instructions PO .COMPLEX PRN (Reason: inflammation) Qty: 15 1RF Rx Instructions: 2 po qday x 5 days, the 1 po qday x 5 days orally take 2 tab daily for 7 days as needed for arthritis flare PRN; ciprofloxacin HCl 500 mg tablet 500 mg PO BID Qty: 10 0RF cevimeline 30 mg capsule 1 cap PO TID Qty: 90 5RF hydroxychloroquine 200 mg tablet 200 mg PO BID Qty: 180 1RF leflunomide 10 mg tablet 10 mg PO DAILY Qty: 90 1RF gabapentin 300 mg capsule 300 mg PO .HS Qty: 90 1RF duloxetine 30 mg capsule,delayed release(DR/EC) See Rx Instructions .ROUTE .COMPLEX Qty: 180 3RF Dose Instruction: Take 1 capsule by mouth twice daily Rx Instructions: Take 1 capsule by mouth twice daily chlorthalidone 25 mg tablet 25 mg PO DAILY Qty: 90 3RF amlodipine 10 mg tablet 10 mg PO DAILY Qty: 90 3RF potassium chloride 8 mEq capsule, extended release 8 meq PO DAILY 30 Days Qty: 30 5RF ropinirole 1 mg tablet 1 mg PO DAILY Qty: 90 3RF vitamin B complex Tablet 1 tab PO DAILY Discharge Orders: Discharge ED (Routine); Ordered 12/12/24 Ordered By: Angel Mckeon Referrals: Edvin Tinsley DO [Primary Care Provider, [facility]] Patient Instructions: Patient Portal & Esther Instructions Activity Restrictions/Additional Instructions: Discharge Instructions: Apixaban Diagnosis: Acute occlusive basilic vein thrombophlebitis (upper extremity DVT). Treatment Plan: You have been prescribed apixaban (Eliquis), a blood thinner, to treat your vein clot. - Take 10 mg twice daily for 7 days, then 5 mg twice daily for 4 to 6 weeks as directed. - Take apixaban at the same times each day, with or without food. - Do not stop taking apixaban unless instructed by your healthcare provider. What to Expect: - Apixaban helps prevent the clot from getting bigger and lowers the risk of new clots forming. - You may bruise or bleed more easily. It may take longer for bleeding to stop. When to Seek Medical Attention: - Call your provider or go to the emergency room if you have: - Unusual bleeding (nosebleeds, bleeding gums, blood in urine or stool, heavy menstrual bleeding) - Severe headache, dizziness, weakness, or fainting - Signs of allergic reaction (rash, swelling, trouble breathing) - Any injury, especially to your head Precautions: - Tell all your healthcare providers and dentist that you are taking apixaban before any procedure or new medication. - Avoid taking aspirin, NSAIDs (like ibuprofen), or other blood thinners unless approved by your provider. - If you are , planning , or , inform your provider. Follow-Up: - Schedule a follow-up visit with your primary care provider in 4 to 6 weeks, or sooner if you have any concerns. - Your provider will check your progress and decide if you need to continue treatment. Other Instructions: - If you miss a dose, take it as soon as you remember. If it is almost time for your next dose, skip the missed dose?do not double up. - Store apixaban at room temperature, away from moisture and heat. Contact Information: - For questions or concerns, contact your healthcare provider. Summary: Taking apixaban as prescribed is important for your recovery and to prevent complications. Watch for signs of bleeding and keep all follow-up appointments. 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
== END 2024-12-12 15:54 | disposition home or self-care (01) ==
PROVIDERS: Emergency Provider Physician Assistant; PCP Family Medicine
DX: I80.8 Phlebitis and thrombophlebitis of other sites (principal); Z87.891 Personal history of nicotine dependence; I10 Essential (primary) hypertension
CPT/HCPCS: 70450; 93971; 99284